=== PATIENT | female | born 1955 | race African-American/Black ===

== ENCOUNTER 2016-12-02 19:57 | Emergency (ER) | payer MEDICAID ==
[~2016-12-02] VITALS: Ht 172.7 cm; Wt 95.0 kg
[2016-12-02 20:52] VITALS: BP 136/74
[2016-12-02 23:43] LABS: EOSINOPHILS % 2.7 % (0.0-5.0); HEMATOCRIT. 36.6 % (36.0-48.0); HEMOGLOBIN. 11.8 g/dL (12.0-16.0); MEAN CORPUSCULAR HEMOGLOBIN 26.8 pg (28.0-32.0); MEAN CORPUSCULAR HGB CONC 32.4 g/dL (31.0-37.0); MEAN CORPUSCULAR VOLUME 82.7 fL (81.0-99.0); MEAN PLATELET VOLUME 8.7 fl (7.4-10.4); NEUTROPHILS % 37.3 % (40.0-76.0); PLATELET 320 x1000/uL (130-400); RED BLOOD CELL COUNT 4.42 mill/uL (4.2-5.4); RED CELL DISTRIBUTION WIDTH 13.8 % (11.6-14.6); WHITE BLOOD COUNT 7.5 x1000/uL (4.5-11.0)
[2016-12-02 23:51] LABS: ANION GAP 11; CALCIUM 11.1 mg/dL (8.5-10.1); CARBON DIOXIDE 26 mEq/L (21-32); CHLORIDE 110 mEq/L (98-107); INDEX HEMOLYSI 1 (1-3); INDEX ICTERIC 1 (1-4); INDEX LIPEMIC 1 (1-3); UREA NITROGEN BLOOD 11 mg/dL (7-21); eGFR > 60 mL/min (>60)
[2016-12-03 00:04] LABS: PROTHROMBIN TIME 10.7 sec
== END 2016-12-03 01:52 | disposition home or self-care (01) ==
LOC: ER 19:57
DX: R04.0 Epistaxis (principal); R09.81 Nasal congestion; D64.9 Anemia, unspecified; E83.52 Hypercalcemia; I10 Essential (primary) hypertension; Z90.710 Acquired absence of both cervix and uterus
CPT/HCPCS: 36415; 80048; 85025; 85610; 99284

== ENCOUNTER 2017-07-08 07:11 | Inpatient (IN) | payer MEDICAID ==
[~2017-07-08] VITALS: Ht 172.7 cm; Wt 108.4 kg
[2017-07-08] MEDS ORDERED: DIPHENHYDRAMINE 50MG/ML VIAL IV ONE (08:30)
[2017-07-08 08:52] LABS: BASOPHILS % 0.9 % (0.0-2.0); EOSINOPHILS % 0.6 % (0.0-5.0); HEMATOCRIT. 37.7 % (36.0-48.0); HEMOGLOBIN. 12.4 g/dL (12.0-16.0); LYMPHOCYTES % 24.9 % (20.0-50.0); MEAN CORPUSCULAR HEMOGLOBIN 26.8 pg (28.0-32.0); MEAN CORPUSCULAR VOLUME 81.5 fL (81.0-99.0); MEAN PLATELET VOLUME 8.6 fl (7.4-10.4); MONOCYTES % 5.6 % (2.0-8.0); PLATELET 305 x1000/uL (130-400); RED BLOOD CELL COUNT 4.63 mill/uL (4.2-5.4); RED CELL DISTRIBUTION WIDTH 13.9 % (11.6-14.6)
[2017-07-08] MEDS ORDERED: ONDANSETRON HCL 4MG/2ML VIAL IV ONE (09:00)
[2017-07-08 09:06] LABS: CARBON DIOXIDE 29 mEq/L (21-32); CHLORIDE 108 mEq/L (98-107); TROPONIN I < 0.02 ng/mL (0.00-0.04)
[2017-07-08 15:10] VITALS: BP 133/64
[2017-07-08] MEDS ORDERED: ONDANSETRON HCL 4MG/2ML VIAL IV PRN (15:30)
[2017-07-08] MEDS ORDERED: MECLIZINE 25MG TABLET PO PRN (15:30)
[2017-07-08 16:00] VITALS: BP 142/68
[2017-07-08] MEDS ORDERED: MULT1TAB63 PO (16:25)
[2017-07-08] MEDS ORDERED: ALBU18HF2 IH (16:27)
[2017-07-08] MEDS ORDERED: MOME13HF2 INH (16:27)
[2017-07-08] MEDS ORDERED: AMLO10TA80 PO (16:27)
[2017-07-08] MEDS ORDERED: DOCU-150 PO (16:29)
[2017-07-08] MEDS ORDERED: MAPAP PO (16:29)
[2017-07-08] MEDS ORDERED: LOSA25TA12 PO (16:30)
[2017-07-08 16:56] LABS: CREATINE KINASE 170 IU/L (26-192); CREATINE KINASE MB FRACTION 1.6 ng/mL (0.5-3.6); TROPONIN I < 0.02 ng/mL (0.00-0.04)
[2017-07-08 20:00] VITALS: BP 131/60
[2017-07-08 23:45] LABS: CREATINE KINASE 166 IU/L (26-192); CREATINE KINASE MB FRACTION 1.4 ng/mL (0.5-3.6); TROPONIN I < 0.02 ng/mL (0.00-0.04)
[2017-07-09] VITALS (7 sets, daily range): BP systolic 124–148; BP diastolic 66–81
[2017-07-09] MEDS: TRAMADOL 50MG TABLET PO PRN ×2 (00:14→06:24)
[2017-07-09] MEDS: ASPIRIN 81MG TABLET PO SCH (09:01)
[2017-07-09] MEDS ORDERED: MAGNESIUM 1 G PREMIX 100 ML IV SCH (14:00)
[2017-07-10 04:00] VITALS: BP 132/87
[2017-07-10 08:54] VITALS: BP 148/77
[2017-07-10] MEDS: ASPIRIN 81MG TABLET PO SCH (09:13)
[2017-07-10] MEDS: TRAMADOL 50MG TABLET PO PRN (09:14)
[2017-07-10 12:23] VITALS: BP 130/85
[2017-07-10 14:25] VITALS: BP 137/60
[2017-07-11] MEDS ORDERED: TRIA15OI8 TP (15:06)
== END 2017-07-10 15:25 | disposition home or self-care (01) | DRG 111 ==
LOC: ER 07:11 → 6WST 12:19 → ENRESERV 12:58
PROVIDERS: ADMIT Hospitalist; ATTEND Hospitalist
DX: H81.10 Benign paroxysmal vertigo, unspecified ear (principal); E83.42 Hypomagnesemia; I10 Essential (primary) hypertension; R07.89 Other chest pain; M79.632 Pain in left forearm; Z90.710 Acquired absence of both cervix and uterus; M94.0 Chondrocostal junction syndrome [Tietze]
CPT/HCPCS: 36415; 70450; 71010; 73090; 80053; 80061; 80307; 80329; 82550; 82553; 83605; 83735; 84484; 85025; 93005; 93306; 96374; 96375; 99285; J1200; J2405; J3475; J7050

== ENCOUNTER 2017-07-11 14:46 | Emergency (ER) | payer MEDICAID ==
[~2017-07-11] VITALS: Ht 172.7 cm; Wt 109.0 kg
[~2017-07-11 14:46] MED LIST: ALBU18HF2 IH; AMLO10TA80 PO; DOCU-150 PO; LOSA25TA12 PO; MAPAP PO; MOME13HF2 INH; MULT1TAB63 PO
[2017-07-11] MEDS ORDERED: TRIA15OI8 TP (15:06)
[2017-07-11] MEDS ORDERED: MECLIZINE 25MG TABLET PO ONE (19:00)
[2017-07-11 20:17] VITALS: BP 116/68
== END 2017-07-11 20:18 | disposition home or self-care (01) ==
LOC: ER 16:02
DX: R42 Dizziness and giddiness (principal); I10 Essential (primary) hypertension; R07.9 Chest pain, unspecified; R51 Headache
CPT/HCPCS: 99283; Z7610; J8597

== ENCOUNTER 2022-04-09 17:54 | Emergency (ER) | payer OTHER, MEDICAID ==
[~2022-04-09] VITALS: Ht 172.7 cm; Wt 113.0 kg
[~2022-04-09 17:54] MED LIST changes: +COR6 PO; +HYDR-4134 PO; +LIP40 PO; -LOSA25TA12 PO; +LOSA25TA3 PO; -MAPAP PO; +MULT-624 PO; -MULT1TAB63 PO; +SPIR25TA PO; +TRIA15OI8 TP
[2022-04-09] MEDS ORDERED: MORPHINE SULFATE 4 MG/ML CPJ (NOT FOR IM USE) IV STA (19:10)
[2022-04-09] MEDS ORDERED: ONDANSETRON HCL 4MG/2ML INJ IV STA (19:10)
[2022-04-09] MEDS ORDERED: PROPOFOL 200MG/20ML VIAL IV ONE (20:45)
[2022-04-09] MEDS ORDERED: ONDANSETRON HCL 4MG/2ML INJ IV ONE (20:45)
[2022-04-09] MEDS ORDERED: MORPHINE SULFATE 4 MG/ML CPJ (NOT FOR IM USE) IV NR (21:00)
[2022-04-10] MEDS ORDERED: HYDR-4001 MT (01:02)
[2022-04-10] MEDS ORDERED: MORPHINE SULFATE 4 MG/ML CPJ (NOT FOR IM USE) IV ONE (01:15)
[2022-04-10 01:43] VITALS: BP 160/80
== END 2022-04-10 01:46 | disposition home or self-care (01) ==
LOC: ER 17:54
DX: S53.194A Other dislocation of right ulnohumeral joint, initial encounter (principal); S52.591A Other fractures of lower end of right radius, initial encounter for closed fracture; S52.691A Other fracture of lower end of right ulna, initial encounter for closed fracture; Y01.XXXA Assault by pushing from high place, initial encounter; Y93.89 Activity, other specified; Y92.89 Other specified places as the place of occurrence of the external cause; I10 Essential (primary) hypertension; E11.9 Type 2 diabetes mellitus without complications
CPT/HCPCS: 73070; 73090; 73100; 96374; 96375; 96376; 99152; 99285; J2270; J2405; J2704